=== PATIENT | female | born 1980 | race Two or more races ===

== ENCOUNTER 2017-05-06 14:51 | Emergency (ER) | payer BC ==
--- NOTE | ~2017-05-06 | EKG ---
PATIENT: DILCIA ROBLEDO UNIT #: [id number] Ventricular Rate: 112 BPM Atrial Rate: 112 BPM P-R Interval: 142 ms QRS Duration: 68 ms Q-T Interval: 322 ms QTC Calculation(Bezet): 439 ms P [place]: 76 degrees Calculated R [place]: 68 degrees Calculated T [place]: -29 degrees Diagnosis Line: Sinus tachycardia Diagnosis Line: Nonspecific ST and T wave abnormality Diagnosis Line: Abnormal ECG Diagnosis Line: No previous ECGs available Diagnosis Line: Confirmed by KEIKO ROLAND MD ([id number]) on 05/06/2017 Diagnosis Line: 10:16:35 PM INTERPRETING MD: LUAN ADAN
[2017-05-06 15:19] LABS: BASOPHIL# 0.1 X10e3 (0-0.3); BASOPHIL% 0.9 % (0-2.5); EOSINOPHIL% 0.2 % (0.0-7.0); HEMATOCRIT 37.7 % (35.0-45.0); HEMOGLOBIN 12.5 gm/dL (12.0-16.0); LYMPHOCYTE# 1.2 X10e3 (1.0-3.5); LYMPHOCYTE% 18.4 % (17.0-45.0); MEAN CELL VOLUME 87.3 FL (83-96); MEAN CORPUSCULAR HEMOGLOBIN 28.9 PG (28-34); MEAN CORPUSCULAR HGB CONC 33.1 g/dL (30-36); MEAN PLATELET VOLUME 9.1 FL (6.5-11.5); MONOCYTE# 0.3 X10e3 (0-1.0); NEUTROPHIL# 5.2 X10e3 (1.5-7.1); NEUTROPHIL% 76.5 % (40-75); PLATELET COUNT 327 X10e3 (140-420); RED BLOOD COUNT 4.32 X10e (3.90-5.30); RED CELL DISTRIBUTION WIDTH 12.6 % (11.0-15.5); WHITE BLOOD COUNT 6.8 X10e3 (4.0-10.5)
[2017-05-06 15:21] LABS: DIFF IND NO
[2017-05-06 15:34] LABS: BUN/CREATININE RATIO 12.22; CALCIUM SERUM 9.2 mg/dL (8.4-10.2); CREATININE SERUM 0.9 mg/dL (0.6-1.4); GLOM FILT RATE Estimated 82.9 mL/min (>60)
[2017-05-06 16:16] LABS: POC - CKMB <1.0 ng/mL (0.0-7.9); POC - TROPONIN <0.05 ng/mL (<=0.05)
== END 2017-05-06 16:50 | disposition home or self-care (01) ==
LOC: CED 14:51
PROVIDERS: Emergency Medicine
DX: F41.1 Generalized anxiety disorder (principal); R00.0 Tachycardia, unspecified; Z88.0 Allergy status to penicillin
CPT/HCPCS: 36415; 80048; 82553; 84484; 85025; 93005; 99285